=== PATIENT | female | born 1980 | race Two or more races ===

== ENCOUNTER 2018-04-01 20:19 | Emergency (ER) | payer MEDICAID ==
[~2018-04-01] VITALS: Ht 144.8 cm; Wt 83.9 kg
[2018-04-01] MEDS ORDERED: IBUP800T54 PO (20:29)
[2018-04-01] MEDS ORDERED: ACET-2605 PO (20:29)
[2018-04-01] MEDS ORDERED: HYDROMORPHONE 1 MG/1 ML DISP.SYRIN IM ONE (20:45)
[2018-04-01] MEDS ORDERED: ONDANSETRON ODT 4 MG TAB.RAPDIS SL ONE (20:45)
[2018-04-01] MEDS ORDERED: ONDANSETRON ODT 4 MG TAB.RAPDIS ONE (20:54)
[2018-04-01] MEDS ORDERED: HYDROMORPHONE 1 MG/1 ML DISP.SYRIN ONE (20:54)
--- NOTE | 2018-04-01 20:57 | NUR ---
Patient discharged to home in stable conditon. Written and verbal after care instructions given to patient and family members. Patient and family verbalized understanding of instructions.
== END 2018-04-01 21:00 | disposition home or self-care (01) ==
LOC: ER 20:19
DX: G89.29 Other chronic pain (principal); M54.2 Cervicalgia; M54.9 Dorsalgia, unspecified; R51 Headache; Z79.1 Long term (current) use of non-steroidal anti-inflammatories (NSAID); Z79.899 Other long term (current) drug therapy
CPT/HCPCS: 96372; 99283; J1170; A4663; Q0162

== ENCOUNTER 2024-08-11 11:09 | Inpatient (IN) | payer MEDICAID ==
[~2024-08-11] VITALS: Ht 144.8 cm; Wt 69.4 kg
[~2024-08-11 11:09] MED LIST: ACET-2605 PO; IBUP800T54 PO
[2024-08-11 11:56] LABS: BASOPHILS % (AUTO) 0.4 % (0.0-2.0); DIFFERENTIAL COMMENT 0; EOSINOPHILS % (AUTO) 0.1 % (0.0-7.0); HEMATOCRIT 32.1 % (31.2-41.9); HEMOGLOBIN 10.4 g/dL (10.9-14.3); LYMPHOCYTES # (AUTO) 0.6 K/uL (0.8-4.8); LYMPHOCYTES % (AUTO) 6.3 % (20.5-51.5); MEAN CORPUSCULAR HEMOGLOBIN 23.7 uug (24.7-32.8); MEAN CORPUSCULAR HGB CONC 33 g/dL (32.3-35.6); MEAN CORPUSCULAR VOLUME 72.9 fL (75.5-95.3); MONOCYTES # (AUTO) 0.1 K/uL (0.1-1.30); MONOCYTES % (AUTO) 1.3 % (0.0-11.0); NEUTROPHILS # (AUTO) 8.9 K/uL (1.8-8.9); NEUTROPHILS % (AUTO) 91.9 % (38.5-71.5); PLATELET COUNT (AUTO) 399 K/uL (179-408); RED BLOOD CELL COUNT(AUTO) 4.41 MIL/uL (3.63-4.92); WHITE BLOOD COUNT (AUTO) 9.7 K/uL (3.8-11.8)
[2024-08-11] MEDS ORDERED: diphenhydrAMINE 50 MG/1 ML VIAL ONE (11:56)
[2024-08-11] MEDS ORDERED: KETOROLAC TROMETHAMINE 30 MG INJ ONE (11:56)
[2024-08-11] MEDS ORDERED: METOCLOPRAMIDE HCL 10 MG/2 ML VIAL ONE (11:56)
[2024-08-11] MEDS: IV NORMAL SALINE 1000 ML BAG IV ONE (12:05)
[2024-08-11] MEDS: KETOROLAC TROMETHAMINE 30 MG INJ IVP ONE (12:06)
[2024-08-11] MEDS: METOCLOPRAMIDE HCL 10 MG/2 ML VIAL IV ONE (12:06)
[2024-08-11] MEDS: diphenhydrAMINE 50 MG/1 ML VIAL IV ONE (12:06)
[2024-08-11 12:10] LABS: CALCIUM 9.5 mg/dL (8.5-10.1); CARBON DIOXIDE 21 mmol/L (21-32); CHLORIDE 98 mmol/L (98-107); CREATININE 1.4 mg/dL (0.6-1.3); GLUCOSE 208 mg/dL (74-106); POTASSIUM 3.3 mmol/L (3.5-5.1); SODIUM SERUM 136 mmol/L (136-145); UREA NITROGEN, BLOOD 7 mg/dL (7-18)
[2024-08-11 12:15] LABS: ALANINE AMINOTRANSFERASE 33 U/L (14-59); ALBUMIN 3.8 g/dL (3.4-5.0); ALKALINE PHOSPHATASE 118 U/L (50-136); ASPARTATE AMINOTRANSFERASE 26 U/L (15-37); BILIRUBIN,DIRECT 0.1 mg/dL (0.0-0.2); BILIRUBIN,TOTAL 0.5 mg/dL (0.2-1.0); LIPASE 35 U/L (16-77); TOTAL PROTEIN, SERUM 8.6 g/dL (6.4-8.2)
[2024-08-11] MEDS ORDERED: POTASSIUM BICARBONATE/CIT AC 25 MEQ TABLET.EFF ONE (12:26)
[2024-08-11 12:28] LABS: *BILIRUBIN,URIN NEGATIVE (NEGATIVE); *CLARITY,URINE CLEAR (CLEAR); *COLOR,URINE YELLOW (YELLOW); *KETONES,URINE NEGATIVE (NEGATIVE); *UROBILINOGEN,URINE 0.2 E.U./dl (NORMAL); LEUKOCYTE ESTERASE ,URINE NEGATIVE (NEGATIVE); NITRITE, URINE NEGATIVE (NEGATIVE); PH,URINE 5.5 (5.0-8.0); UGLUCOSE NEGATIVE (NEGATIVE)
[2024-08-11] MEDS: POTASSIUM BICARBONATE/CIT AC 25 MEQ TABLET.EFF PO ONE (12:31)
[2024-08-11 12:39] LABS: LACTIC ACID 4.6 mmol/L (0.4-2.0)
[2024-08-11 12:40] LABS: *BLOOD, URINE TRACE (NEGATIVE); *PROTEIN,URINE 3+ (NEGATIVE)
[2024-08-11 12:44] LABS: IRON, SERUM 34 ug/dL (50-175)
[2024-08-11] MEDS ORDERED: MAGNESIUM SULFATE/D5W 300 ML ONE (12:51)
[2024-08-11] MEDS: IV NS 1000 ML 1,000 ML IV ONE (12:52)
[2024-08-11] MEDS: MAGNESIUM SULFATE/D5W 100 ML IV SCH (12:57)
[2024-08-11 12:59] LABS: BACTERIA,URINE FEW /HPF (NONE SEEN); SQUAMOUS EPITHELIAL CELL,UR MANY /HPF (NONE SEEN); WBC,URINE 0-3 /HPF (0-3)
[2024-08-11] MEDS ORDERED: FERR325T24 PO (13:03)
[2024-08-11] MEDS ORDERED: ONDA4TAB11 SL (13:03)
[2024-08-11] MEDS ORDERED: HYDR-4209 PO (13:03)
[2024-08-11] MEDS ORDERED: TIZA-180 PO (13:03)
[2024-08-11] MEDS ORDERED: ERGO500040 PO (13:03)
[2024-08-11] MEDS ORDERED: AMLO10TA59 PO (13:03)
[2024-08-11] MEDS ORDERED: SWABABLE VALVE TRANSFER SET EA MC ONE (13:35)
[2024-08-11] MEDS ORDERED: IV NORMAL SALINE 250 ML IV ONE (13:35)
[2024-08-11] MEDS ORDERED: IOHEXOL 300MG/ML 100 ML INFUS..BTL ONE (13:35)
[2024-08-11] MEDS ORDERED: ONDANSETRON 4 MG/2 ML VIAL ONE (13:54)
[2024-08-11] MEDS ORDERED: HYDROMORPHONE 1 MG/1 ML DISP.SYRIN ONE (13:54)
[2024-08-11] MEDS: HYDROMORPHONE 1 MG/1 ML DISP.SYRIN IV ONE (14:00)
[2024-08-11] MEDS: ONDANSETRON 4 MG/2 ML VIAL IV ONE (14:00)
[2024-08-11 14:30] VITALS: BP 128/76; TEMP 97.2; O2SAT 97
[2024-08-11] MEDS ORDERED: ZOLPIDEM 5 MG TABLET PO PRN (15:30)
[2024-08-11] MEDS ORDERED: MAGNESIUM HYDROXIDE 30 ML LIQUID UDC PO PRN (15:30)
[2024-08-11] MEDS ORDERED: REMEDY ESSENTIAL ZINC PASTE 113 GM TP PRN (15:30)
[2024-08-11] MEDS ORDERED: Medication Not On Formulary EA (Tizanidine Hcl 2 MG) PO PRN (15:45)
[2024-08-11] MEDS ORDERED: TIZANIDINE HCL 4 MG TABLET PO PRN (15:45)
[2024-08-11] MEDS: IV D5 1/2 NS 1000 ML 1,000 ML IV PRN (16:01)
[2024-08-11] MEDS: FERROUS SULFATE 325 MG TABEC PO SCH (16:33)
[2024-08-11] MEDS: KETOROLAC TROMETHAMINE 30 MG INJ IVP PRN (17:26)
[2024-08-11 19:00] VITALS: BP 138/84; TEMP 98; O2SAT 99
[2024-08-11] MEDS: ONDANSETRON 4 MG/2 ML VIAL IV PRN (20:44)
[2024-08-11] MEDS: KETOROLAC TROMETHAMINE 15 MG INJ IVP PRN (22:11)
[2024-08-12] VITALS: BP 119/73; TEMP 98.5; O2SAT 96
[2024-08-12 04:00] VITALS: BP 130/83; TEMP 98.4; O2SAT 100
[2024-08-12 06:59] LABS: BASOPHILS # (AUTO) 0.1 K/UL (0.0-0.2); BASOPHILS % (AUTO) 0.9 % (0.0-2.0); EOSINOPHILS # (AUTO) 0.1 K/uL (0.0-0.7); EOSINOPHILS % (AUTO) 1.2 % (0.0-7.0); HEMATOCRIT 31.4 % (31.2-41.9); HEMOGLOBIN 10.1 g/dL (10.9-14.3); LYMPHOCYTES # (AUTO) 1.9 K/uL (0.8-4.8); LYMPHOCYTES % (AUTO) 21.9 % (20.5-51.5); MEAN CORPUSCULAR HEMOGLOBIN 23.6 uug (24.7-32.8); MEAN CORPUSCULAR HGB CONC 32 g/dL (32.3-35.6); MEAN CORPUSCULAR VOLUME 73.4 fL (75.5-95.3); MONOCYTES # (AUTO) 0.8 K/uL (0.1-1.30); MONOCYTES % (AUTO) 8.7 % (0.0-11.0); NEUTROPHILS # (AUTO) 5.9 K/uL (1.8-8.9); NEUTROPHILS % (AUTO) 67.3 % (38.5-71.5); PLATELET COUNT (AUTO) 379 K/uL (179-408); RED BLOOD CELL COUNT(AUTO) 4.28 MIL/uL (3.63-4.92); RED CELL DISTRIBUTION WIDTH 17.8 % (12.3-17.7); WHITE BLOOD COUNT (AUTO) 8.8 K/uL (3.8-11.8)
[2024-08-12 07:14] LABS: DIFFERENTIAL COMMENT 1
[2024-08-12 07:15] LABS: CALCIUM 8.5 mg/dL (8.5-10.1); CREATININE 0.8 mg/dL (0.6-1.3); MAGNESIUM 2.2 mg/dL (1.8-2.4); PHOSPHOROUS 3.3 mg/dL (2.5-4.9)
[2024-08-12 07:49] LABS: POTASSIUM 2.6 mmol/L (3.5-5.1)
[2024-08-12 07:59] VITALS: BP 123/78; TEMP 97.9; O2SAT 100
[2024-08-12] MEDS: AMLODIPINE 10 MG TABLET PO SCH (08:03)
[2024-08-12] MEDS: PANTOPRAZOLE SODIUM 40 MG VIAL IV SCH (08:03)
[2024-08-12 11:39] VITALS: BP 120/71; TEMP 98.4; O2SAT 99
[2024-08-12] MEDS: POTASSIUM CHLORIDE 20 MEQ TAB.PRT.SR PO ONE (13:58)
[2024-08-12] MEDS: ACETAMINOPHEN 325 MG TABLET PO PRN (15:00)
[2024-08-13] MEDS ORDERED: ERGOCALCIFEROL 50,000 UNIT CAPSULE PO SCH (09:00)
== END 2024-08-12 17:10 | disposition home or self-care (01) | DRG 244 ==
LOC: ER 11:09 → TELE3 15:03
PROVIDERS: ADMIT Student in an Organized Health Care Education/Training Program; ATTEND Student in an Organized Health Care Education/Training Program
DX: K57.91 Diverticulosis of intestine, part unspecified, without perforation or abscess with bleeding (principal); N17.0 Acute kidney failure with tubular necrosis; E87.20 Acidosis, unspecified; D50.9 Iron deficiency anemia, unspecified; K57.90 Diverticulosis of intestine, part unspecified, without perforation or abscess without bleeding; E87.6 Hypokalemia; N20.0 Calculus of kidney; N94.89 Other specified conditions associated with female genital organs and menstrual cycle; M79.7 Fibromyalgia; E83.42 Hypomagnesemia; R91.1 Solitary pulmonary nodule; Z90.49 Acquired absence of other specified parts of digestive tract; R79.1 Abnormal coagulation profile; G43.909 Migraine, unspecified, not intractable, without status migrainosus; I45.10 Unspecified right bundle-branch block; R00.0 Tachycardia, unspecified; R60.9 Edema, unspecified
CPT/HCPCS: 36415; 71045; 83550; 83605; 83690; 83735; 84100; 84484; 85025; 87086; A4606; A4663; G0378; J1171; J1200; J1885; J2405; J2470; J2765; J3475; J7040; Q9967